=== PATIENT | male | born 1980 | race Two or more races ===

== ENCOUNTER 2022-02-26 08:11 | Emergency (ER) | payer MEDICAID ==
[~2022-02-26] VITALS: Ht 177.8 cm; Wt 81.6 kg
--- NOTE | 2022-02-26 08:30 | NUR ---
RECEIVED PT 41YAR male came by [facility] FOR ALOC pt aspleepy drowsy no fallow command respirtion spont easy
--- NOTE | 2022-02-26 09:00 | NUR ---
seen by dr. tomlinson
--- NOTE | 2022-02-26 10:35 | NUR ---
PT ASLEEPY ARUSBLE WHEN CALL NAME
--- NOTE | 2022-02-26 12:00 | NUR ---
AMBLATE WITH STADY GAIT NO WEEKNESS
--- NOTE | 2022-02-26 12:21 | NUR ---
[facility] CALLED FOR HOMELESS RESOURCES
[2022-02-26] MEDS ORDERED: NALO4SPR BNOSTRILS (12:24)
--- NOTE | 2022-02-26 12:32 | NUR ---
SW AT BEDSIDE
--- NOTE | 2022-02-26 12:44 | NUR ---
SS note: SS Consult requested for possible homelessness and suspected opiate overdose. The pt. is a 41 -year-old male patient who was BIBRA and PD after possible opiate OD. Per EMR, the pt. was "given 10 mg total of Narcan with improvement of patient's mental status". Upon SS consult, the pt. is Alert & Oriented x 4 and makes good poor eye contact. The pt. appears disheveled, sunburned with small scratches to face. The pt. presents with dysphoric mood & flat affect. Pt. denies SI/HI and denies hallucinations. [facility] explored pt.'s living situation. Patient states he currently resides at home and could not provide address. The pt. states he has a home to return to in [facility]. AM[facility]OCIO explored pt.'s mental health Hx. and pt. denies mental illness. AMBROCIO explored pt.'s drug & ETOH use. Pt. denies any drug or alcohol use. AMBROCIO provided MAT resources for opiate use and pt. refused. Pt. states he is ambulatory and independent with all his ADL's. AMBROCIO explored pt.'s support system. Pt. states he has family in the area. Pt. presents guarded and refused to provide detailed answers. Plan: [facility] Pt. was agreeable to return to home and states he knows how to get home via bus. AMBROCIO provided a TAP card to pt. and thanked AMBROCIO and was agreeable to plan. AMBROCIO provided pt. with homeless resources to long term, food rodriguez, showers etc. and pt. refused resources. Pt. refused to sign homeless waiver and it was placed in the pt.'s chart.
--- NOTE | 2022-02-26 13:13 | NUR ---
Patient discharged to home in stable condition. Written and verbal after care instructions given. Patient verbalizes understanding of instruction.
[2022-02-26 13:25] VITALS: BP 126/75
== END 2022-02-26 13:26 | disposition home or self-care (01) ==
LOC: ER 08:16
DX: T40.601A Poisoning by unspecified narcotics, accidental (unintentional), initial encounter (principal); R53.83 Other fatigue; Z79.899 Other long term (current) drug therapy; Y92.89 Other specified places as the place of occurrence of the external cause